=== PATIENT | female | born 1940 | race Caucasian/White ===

== ENCOUNTER → 2017-03-08 | Outpatient (CLI) | payer OTHER | LOC: BMCIMAGING 14:10 | PROVIDERS: ATTEND Internal Medicine | DX: Z13.820 Encounter for screening for osteoporosis (principal); M85.89 Other specified disorders of bone density and structure, multiple sites ==

== ENCOUNTER 2017-07-12 06:17 | Inpatient (IN) | payer OTHER ==
--- NOTE | 2017-07-11 18:08 | GHP ---
[f rep st] PREOP HISTORY AND PHYSICAL Amended report HISTORY: The patient is a 76-year-old female who presents with left hip pain, limited motion, and abnormal gait. Her hip causes her to limp. She has limited range of motion and this limits her activities including activities of daily living. She has groin pain as well as posterior hip pain localizing around the pelvis, does not radiate. X-ray shows severe [id number] left hip osteoarthritis with degenerative lipping, loss of joint space, subchondral sclerosis. She has tried appropriate conservative measures and tried to maintain her activity level and motion, but she is becoming significantly limited at this point. A left total hip arthroplasty has been advised and she wishes to proceed. PAST MEDICAL HISTORY: She has no current medical problems. PAST SURGICAL HISTORY: She has had no prior surgeries. MEDICATIONS: She is using aspirin 81 mg 2 tablets daily. SOCIAL HISTORY: She has a remote history of smoking but has quit. ALLERGIES: She has no known drug allergies. REVIEW OF SYSTEMS: Negative for cardiopulmonary disease. PHYSICAL EXAMINATION: GENERAL: The patient is a well-developed, well- nourished female in no apparent distress. HEAD AND NECK: Normocephalic, atraumatic. CHEST: Clear. CARDIOVASCULAR: Regular rate and rhythm. ABDOMEN : Soft. NEUROLOGIC: She is alert and oriented x3. EXTREMITIES: Examination of the left hip shows limited motion, she has discomfort beyond 90 degrees of flexion. She has only about 10 degrees of internal and external rotation, her opposite hip is much more flexible, her neurovascular exam is intact. DIAGNOSTIC DATA: X-rays show severe left hip osteoarthritis as described. There does not appear to be much leg length discrepancy. There is loss of joint space, dooj-cw-arky, osteophyte, subchondral sclerosis. IMPRESSION: Left hip osteoarthritis. PLAN: Left total hip arthroplasty. Benefits and risks of surgery have been reviewed, including the risk of infection, damage to blood vessels or nerves, failure or loosening of components and need for revision, leg length discrepancy or hip dislocation, bleeding and need for transfusion. The rigorous nature of the rehab has been reviewed and she has signed her consent form and wishes to proceed. /[id number]/MODL Add acc#, 07/12/17, he MEHTA
[~2017-07-12 06:17] MED LIST: ACETAMINOPHEN 325 MG TAB PO ONE; DEXAMETHASONE 4 MG/ML VIAL IVP ONE; FAMOTIDINE 20 MG TAB PO ONE; LIDOCAINE 1% 2 ML INJ ID PRN; LR 1,000 ML IV ONE; NS IV ONE; POVIDONE-IODINE 20 ML in SODIUM CL IRRIG SOLUTION 500 ML IRR ONE; ROPIVACAINE 0.2% 80 MG, EPINEPHrine 0.2 MG, KETOROLAC TROMETHAMINE 30 MG in SYRINGE 0 ML IU ONE; TRANEXAMIC ACID IV ONE; ceFAZolin 2 GM/SWFI 2 GM/20 ML SYR IVP ONE
[2017-07-12] MEDS ORDERED: ceFAZolin 1 GM/5 ML SYR ONE (06:53)
--- NOTE | 2017-07-12 07:03 | PDANEPAE ---
ANE History of Present Illness 76 yo female with L hip OA for L NIKKI. ANE Past Medical History - Cardiovascular History Hx Hypertension: Yes Hx Arrhythmias: No Hx Chest Pain: No Hx Coronary Artery / Peripheral Vascular Disease: No Hx CHF / Valvular Disease: No Hx Palpitations: No - Pulmonary History Hx COPD: No Hx Asthma/Reactive Airway Disease: No Hx Recent Upper Respiratory Infection: No Hx Oxygen in Use at Home: No Hx Sleep Apnea: No Sleep Apnea Screening Result - Last Documented: Negative - Neurologic History Hx Cerebrovascular Accident: No Hx Seizures: No Hx Dementia: No - Endocrine History Hx Diabetes: No Hypothyroid: No Obesity: no - Renal History Hx Renal Disorders: No - Liver History Hx Hepatic Disorders: No - Neurological & Psychiatric Hx Hx Neurological and Psychiatric Disorders: No - Cancer History Hx Cancer: Yes Cancer History Comment: skin ca- 2 spots removed summer 2016 - Congenital Disorder History Hx Congenital Disorders: No - GI History Hx Gastrointestinal Disorders: No - Other Health History Other Health History: full dentures - Chronic Pain History Chronic Pain: Yes (left hip pain) - Surgical History Prior Surgeries: na ANE Review of Systems Review of Systems: - Exercise capacity METS (RN): 4 METS - Systems Constitutional: Reports: no symptoms EENMT: Reports: no symptoms Cardiac: Reports: no symptoms Respiratory: Reports: no symptoms ANE Patient History - Allergies Allergies/Adverse Reactions: No Known Allergies Allergy (Verified 06/21/17 16:05) - Home Medications Home medications: home medication list seen and reviewed Home Medications: Aspirin [Aspirin 81mg (*)] 162 mg PO DAILY 06/17/17 [Last Taken Unknown] Calcium Carbonate [Oyster Shell Calcium 500 mg (*)] 500 mg PO DAILY 06/17/17 [ Last Taken Unknown] Herbals/Supplements -Info Only 1 ea PO DAILY 06/17/17 [Last Taken Unknown] Lisinopril [Zestril 10 mg (*)] 10 mg PO DAILY 06/17/17 [Last Taken Unknown] Multivitamins [Multivitamin (*)] 1 each PO DAILY 06/17/17 [Last Taken Unknown] [place]-3 Fatty Acids [Fish Oil 1000 mg (*)] 1,000 mg PO DAILY 06/17/17 [Last Taken Unknown] - NPO status NPO Status: no food or drink >8 hours - Anes Hx Anes Hx: no prior problems - Smoking Hx Smoking Status: Former smoker - Alcohol Use Alcohol Use: Rarely - Family Anes Hx Family Anes Hx: neg - N/A Family Hx Anesthesia Complications: none ANE Labs/Vital Signs - Labs - CBC HGB: 15 HCT: 44 Platelet Count: 270 - Labs - BMP BUN: 8 Creatinine: 0.7 - Vital Signs Vital Signs: reviewed preoperatively; see RN documention for details Height: 172.72 cm Weight: 58.967 kg ANE Physical Exam - Airway Neck exam: FROM Mallampati Score: Class 2 Mouth exam: dentures - Pulmonary Pulmonary: clear to auscultation - Cardiovascular Cardiovascular: regular rate and rhythym - ASA Status ASA Status: II ANE Anesthesia Plan Anesthesia Plan: spinal
[2017-07-12] MEDS ORDERED: DEXAMETHASONE 4 MG/ML VIAL ONE ×2 (07:14)
[2017-07-12] MEDS ORDERED: PROPOFOL/EMULSION 500 MG/50 ML BOTTLE IV ONE (07:14)
[2017-07-12] MEDS ORDERED: fentaNYL 100 MCG/2 ML INJ ONE (07:14)
[2017-07-12] MEDS ORDERED: LIDOCAINE 2% 5 ML SDV ONE (07:14)
[2017-07-12] MEDS ORDERED: LR 500 ML IV PRN (09:24)
[2017-07-12] MEDS ORDERED: ALBUTEROL 3 ML DEYVIAL IH PRN (09:24)
[2017-07-12] MEDS ORDERED: fentaNYL 100 MCG/2 ML INJ IVP PRN (09:24)
[2017-07-12] MEDS ORDERED: NALOXONE HCL 0.4 MG/ML INJ IVP PRN (09:24)
[2017-07-12] MEDS ORDERED: ACETAMINOPHEN 500 MG TAB PO PRN (09:24)
[2017-07-12] MEDS ORDERED: ONDANSETRON 4 MG/2 ML VIAL IVP PRN ×2 (09:24→10:01)
[2017-07-12] MEDS ORDERED: DIAZEPAM 10 MG/2 ML SYR IVP PRN (09:24)
[2017-07-12] MEDS ORDERED: OXYCODONE/APAP 5/325 TAB PO PRN (09:24)
[2017-07-12] MEDS ORDERED: PROPOFOL 200 MG/20 ML VIAL ONE (09:35)
--- NOTE | 2017-07-12 09:56 | POSTANESTH ---
Post Anesthetic Evaluation Cardiovascular Status: Normal, Stable Respiratory Status: Normal, Stable Level of Consciousness/Mental Status: Can Participate in Eval, Mildly Sleepy, Arousable Pain Control: Adequate, Prn Tx Ordered Nausea/Vomiting Control: Adequate, Prn Tx Ordered Complications Possibly Related to Anesthesia: None Noted (Still unable to move LE x2.)
[2017-07-12] MEDS ORDERED: PROMETHAZINE HCL 25 MG SUPPR PR PRN (10:01)
[2017-07-12] MEDS ORDERED: NS 500 ML IV PRN (10:01)
[2017-07-12] MEDS ORDERED: CYCLOBENZAPRINE 10 MG TAB PO PRN (10:01)
[2017-07-12] MEDS ORDERED: TEMAZEPAM 15 MG CAP PO PRN (10:01)
[2017-07-12] MEDS ORDERED: PROMETHAZINE HCL 25 MG/ML INJ IVP PRN (10:01)
[2017-07-12] MEDS ORDERED: BISACODYL 10 MG SUPP PR PRN (10:01)
[2017-07-12] MEDS ORDERED: POLYETHYLENE GLYCOL 3350 17 GM PKT PO PRN (10:01)
[2017-07-12] MEDS ORDERED: LACTULOSE 20 GM/30 ML UDCUP PO PRN (10:01)
[2017-07-12] MEDS ORDERED: DIPHENOXYLATE/ATROPINE LOMOTIL 1 TAB PO PRN (10:01)
[2017-07-12] MEDS ORDERED: METOCLOPRAMIDE 10 MG/2 ML VIAL IVP PRN (10:01)
[2017-07-12] MEDS ORDERED: MAGNESIUM HYDROXIDE 30 ML UDCUP PO PRN (10:01)
[2017-07-12] MEDS ORDERED: ONDANSETRON DISINTEGRATING 4 MG TAB PO PRN (10:01)
[2017-07-12] MEDS ORDERED: diphenhydrAMINE 25 MG CAP PO PRN (10:01)
[2017-07-12] MEDS ORDERED: LR 1,000 ML IV SCH (10:30)
[2017-07-12] MEDS: ACETAMINOPHEN 325 MG TAB PO SCH ×3 (12:00→23:47)
[2017-07-12] MEDS: ceFAZolin 2 GM/DEXTROSE 100 ML IV SCH ×2 (13:54→20:11)
[2017-07-12 14:37] VITALS: RESP 16
--- NOTE | 2017-07-12 16:47 | ASMTCMCOM ---
CM Note CM Note Notes: Patient is s/p R NIKKI with Dr Burton. She lives alone and is interested in a SNF rehab stay. PT has endorsed this. I spoke with patient and her daughter and explained that a discharge to [facility] would be more timely than a discharge to [facility]. They understand this and will decide and let us know tomorrow. Referrals sent to both facilities. Current CM discharge plan: SNF, location TBD Date Signed: 07/12/2017 03:57 PM Electronically Signed By:Arin Duffy RN
[2017-07-12] MEDS: KETOROLAC 30 MG/1 ML SDV IVP PRN ×2 (17:54→23:52)
[2017-07-12] MEDS: oxyCODONE IR 5 MG TAB PO PRN ×2 (17:54→23:52)
--- NOTE | 2017-07-12 19:09 | GOP ---
[f rep st] OPERATIVE REPORT DATE OF OPERATION: SURGEON: Arsh Burton MD [employer] MANAGER: Raudel Harrison SA ANESTHESIOLOGIST: Debi Alejandro MD PREOPERATIVE DIAGNOSIS: Left hip osteoarthritis. POSTOPERATIVE DIAGNOSIS: Left hip osteoarthritis. PROCEDURE PERFORMED: Left total hip arthroplasty. FINDINGS: SPECIMENS: Include excised bone. All counts were correct. The patient was taken in stable condition to recovery. ESTIMATED BLOOD LOSS: About 50 cc. INDICATIONS: The patient is a 76-year-old female who presents with history, exam and x-rays consiste nt with severe [id number] left hip osteoarthritis. DESCRIPTION OF PROCEDURE: The patient was taken to the operating room and a spinal anesthetic was ad ministered by Dr. Alejandro. She received tranexamic acid, first dose, as well as a dose of Ancef 2 g. She was then placed right side down on a pegboard with a gel pad and 4 posts were used to stabilize her pelvis. The left hip and leg were prepped and draped in the usual fashion with chlorhexidine. I used a posterior approach to the hip with a gently curving incision just behind the greater trochan ter. Dissection was carried down to subcutaneous tissue. I incised through the ITB fascia through t he trochanteric bursa and into the fascia of the gluteus, splitting the fibers of the muscle bluntly. This allowed excellent visualization of the posterior aspect of the hip. The sciatic nerve was hector ntified and preserved throughout. I released the piriformis as well as the more distal short externa l rotators and tagged these with 2 FiberWire sutures. The capsule was then opened and I tagged the e dge of the capsule as well. I placed the pin above the acetabulum and a drill point in the greater t rochanter for a pre-dislocation leg length measurement, my goal was to minimally lengthen her. The h ip was gently dislocated. I preserved about 15-17 mm of calcar and I used a neck cutting guide to ma ke a femoral neck cut. I then placed acetabular retractors. I initially medialized reaming with sma ller reamers in the high 40s down to the true floor of the pelvis. I then enlarged up to a 53 and th e trial 53 was a good fit. I used a 54 Regenerex RingLoc limited-hole acetabular component. It was hammered into place in about 40 degrees of abduction, and about 20-25 degrees of forward flexion and anteversion. It was a good sound fit in the pelvis. I placed a trial liner. I then addressed the f emoral side. I used a box chisel and an awl to gain access to the canal and I sequentially broached to a size 16 Taperloc complete standard offset stem. This was press-fit into place. I placed about 15 degrees of anteversion in the femoral component. Trial reductions showed that a standard head, 36 diameter ceramic was a good fit. This was placed over the trunnion and hip was reduced. It had exc ellent stability in flexion, internal rotation as well as adduction. This provided minimal lengtheni ng and stable hip. I irrigated with antibiotic solution as well as Betadine rinse. The wound was qu ite dry. Did not need a drain. I closed the rotators and capsule by threading the previously placed FiberWires through 2 holes in the posterior aspect of the greater trochanter. These were tied as a capsular layer and a rotator layer, and this provided a nice soft tissue closure posteriorly. I clos ed the gluteal fascia and IT band fascia using interrupted qkalsm-pg-ylroy sutures of 0 [place]il[place], adams bcutaneous tissue was closed with 2-0 Monocryl, and the skin with a running subcuticular Quill suture . I then applied glue, Telfa, and a large Tegaderm. There were no complications. DRAINS: No drains. SUMMARY OF COMPONENTS: This is a Biomet press-fit hip system. The acetabulum is a Regenerex RingLoc with limited holes superiorly. Size 54 outer diameter. The liner is a +3 Max-Rom antioxidant infus ed liner, the stem is a 16 Taperloc complete porous-coated stem with reduced distal diameter, it was press fit, the head is a 36 diameter ceramic head. My surgical resident, Raudel Harrison, was a medical necessity for this total hip. He provided soft tissue retraction and leg positioning. /[id number]/MODL
[2017-07-12] MEDS: ASPIRIN 325 MG TAB PO SCH (20:11)
[2017-07-12] MEDS: FAMOTIDINE 20 MG TAB PO SCH (20:11)
[2017-07-12] MEDS: SENNOSIDES/DOCUSATE SODIUM TAB PO SCH (20:11)
[2017-07-13] MEDS: ACETAMINOPHEN 325 MG TAB PO SCH ×2 (06:52→13:34)
[2017-07-13 07:32] VITALS: BP 105/66; PULSE 66; TEMP 97.4; O2SAT 94
--- NOTE | 2017-07-13 07:38 | SOAPPROG ---
SOAP Progress Note Assessment/Plan: Assessment: 06/12/17 POD#1 L NIKKI, dressing clean, pain controlled, has been up Plan: 07/13/17 07:35 october D/C today, likely rehab Objective: Vital Signs Temp Pulse Resp BP Pulse Ox 36.3 C 66 16 105/66 94 07/13/17 07:31 07/13/17 07:31 07/13/17 07:31 07/13/17 07:31 07/13/17 07:31 Laboratory Results 07/13/17 04:42 07/12/17 07/13/17 07/14/17 05:59 05:59 05:59 Intake Total 1770 Output Total 650 Balance 1120 ICD10 Worksheet Patient Problems: Problems Problem Status Onset Osteoarthritis of left hip Acute - ICD10 Problem Qualifiers (1) Osteoarthritis of left hip Qualifiers: Osteoarthritis type: primary Qualified Code(s): M16.12 - Unilateral primary osteoarthritis, left hip
--- NOTE | 2017-07-13 07:49 | PDIAF ---
- Diagnosis Diagnosis: left hip osteoarthritis Code Status: Full Code - Medication Management Discharge Medications: Medications to Continue on Transfer Aspirin [Aspirin 81mg (*)] 162 mg PO DAILY 06/17/17 [Last Taken 07/05/17] Calcium Carbonate [Oyster Shell Calcium 500 mg (*)] 500 mg PO DAILY 06/17/17 [ Last Taken 07/05/17] Herbals/Supplements -Info Only 1 ea PO DAILY 06/17/17 [Last Taken 07/05/17] Lisinopril [Zestril 10 mg (*)] 10 mg PO DAILY 06/17/17 [Last Taken 07/11/17 11: 00] Multivitamins [Multivitamin (*)] 1 each PO DAILY 06/17/17 [Last Taken 07/05/17] [place]-3 Fatty Acids [Fish Oil 1000 mg (*)] 1,000 mg PO DAILY 06/17/17 [Last Taken 07/05/17] Aspirin [Aspirin 325 mg (*)] 325 mg PO DAILY tab 07/13/17 [Last Taken Unknown] celeCOXIB [Celebrex (*)] 200 mg PO DAILY cap 07/13/17 [Last Taken Unknown] oxyCODONE IR [Oxycodone Ir (*)] 5 - 10 mg PO Q3HRS PRN tab 07/13/17 [Last Taken Unknown] Discharge Medications: Refer to the Discharge Home Medication list for PRN reason. - Orders Services needed: Physical Therapy Diet Recommendation: no restrictions on diet Diet Texture: Regular Texture Diet Everardo Stockings Discontinue Date: 2 weeks Wound Care Instructions: leave dressing on Sutures/Josue Site: wound glued Activity/Weight Bearing Restrictions: WBAT, hip precautions - Follow Up Care Current Providers and Referrals: Zulema Mcmillan MD [Primary Care Provider] -
[2017-07-13] MEDS: SENNOSIDES/DOCUSATE SODIUM TAB PO SCH (08:51)
[2017-07-13] MEDS: FAMOTIDINE 20 MG TAB PO SCH (08:51)
[2017-07-13] MEDS: KETOROLAC 30 MG/1 ML SDV IVP PRN (08:52)
[2017-07-13] MEDS ORDERED: MULTIVITAMINS 1 EACH TAB PO SCH (09:00)
[2017-07-13] MEDS ORDERED: Herbals/Supplements -Info Only PO SCH (09:00)
[2017-07-13] MEDS ORDERED: LISINOPRIL 10 MG TAB PO SCH (09:00)
[2017-07-13] MEDS ORDERED: CALCIUM CARBONATE 500 MG TAB PO SCH (09:00)
[2017-07-13] MEDS: ASPIRIN 325 MG TAB PO SCH (09:42)
[2017-07-13] MEDS: oxyCODONE IR 5 MG TAB PO PRN (10:27)
--- NOTE | 2017-07-13 11:25 | ASMTCMCOM ---
CM Note CM Note Notes: Pt medically stable for d/c to [facility] who arranged a wc van for 15:00. Orders sent in [employer]. Attempted to update pt dghtrLEATHA is full. Date Signed: 07/13/2017 11:24 AM Electronically Signed By:BRITTNEY Dominguez
--- NOTE | 2017-07-13 15:57 | ASDISCHSUM ---
Discharge Information Plan Status:SNF Medically Cleared to Leave: Discharge Date:07/13/2017 03:09 PM D/C Disposition:Half-Way Facility ADT D/C Disposition:Other Rehab, Not [place] Projected Discharge Date:07/15/2017 11:00 AM Transportation at D/C:Wheelchair Van Discharge Delay Reason: Follow-Up Date:07/15/2017 11:00 AM Discharge Slot: Final Diagnosis: Placement Information Referral Type:*Retirement/SNF Referral ID:[id number] Provider Name:Lesli Sanabria Address 1:[address] [facility] Phone Number: Address 2: Fax Number: City:[place] Selection Factors: State:[place] Patient Contact Information Contact Name:JENNIFER Relationship:Daughter Address: City: [place] [facility] Phone: [facility] Code: Email: Financial Information Financial Class: Primary Plan Desc:MEDICARE INPATIENT Primary Plan Number:[id number] Secondary Plan Desc: Secondary Plan Number: Assessment Information [facility] CM Progress Note CM Note CM Note Notes: Patient is s/p R NIKKI with Dr Burton. She lives alone and is interested in a SNF rehab stay. PT has endorsed this. I spoke with patient and her daughter and explained that a discharge to [facility] would be more timely than a discharge to [facility]. They understand this and will decide and let us know tomorrow. Referrals sent to both facilities. Current CM discharge plan: SNF, location TBD Date Signed: 07/12/2017 03:57 PM Electronically Signed By:Arin Duffy RN [facility] CM Progress Note CM Note CM Note Notes: Pt medically stable for d/c to [facility] who arranged a wc van for 15:00. Orders sent in [employer]. Attempted to update pt dghtrLEATHA is full. Date Signed: 07/13/2017 11:24 AM Electronically Signed By:BRITTNEY Dominguez Intervention Information
== END 2017-07-13 15:09 | DRG 470 ==
LOC: F3N 06:17
PROVIDERS: ADMIT Orthopaedic Surgery; ATTEND Orthopaedic Surgery
PROC: 0SR904A Replacement of Right Hip Joint with Ceramic on Polyethylene Synthetic Substitute, Uncemented, Open Approach (ICD-10-PCS; principal; 2017-07-12 07:15)
DX: M16.12 Unilateral primary osteoarthritis, left hip (principal); Z87.891 Personal history of nicotine dependence
CPT/HCPCS: 97116-GP; 97161-GP; 97165-GO; 97530-GP; C1713; G8978-GP-CI; G8979-GP-CI; G8980-GP-CI; G8987-GO-CJ; G8988-GO-CI; G8989-GO-CJ; J0171; J0690; J1100; J1885; J2704; J2795; J3010